=== PATIENT | female | born 1995 | race Caucasian/White ===

== ENCOUNTER 2019-03-08 10:00 | Emergency (ER) | payer OTHER ==
[~2019-03-08] VITALS: Ht 157.5 cm; Wt 57.2 kg
[2019-03-08 10:19] VITALS: Ht 157.5 cm; Wt 57.2 kg
[2019-03-08 12:25] VITALS: BP 106/69
== END 2019-03-08 12:25 | disposition home or self-care (01) ==
LOC: ED 10:00
DX: R07.89 Other chest pain (principal)
CPT/HCPCS: Q0092